=== PATIENT | male | born 1990 | race Caucasian/White ===

== ENCOUNTER 2023-04-07 14:30 | Outpatient (CLI) | payer BC, SELFPAY ==
--- NOTE | 2023-04-07 | ECG_ITS ---
Measurements Intervals [place] Rate: 79 P: 27 WV: 136 QRS: 56 QRSD: 101 T: 37 QT: 352 QTc: 405 Interpretive Statements SINUS RHYTHM INCOMPLETE RIGHT BUNDLE BRANCH BLOCK BORDERLINE ECG NO PREVIOUS ECG AVAILABLE FOR COMPARISON Electronically Signed On 04-07-2023 15:36:48 CDT by Jayden Rolle D.O.
== END 2023-04-07 14:31 | disposition home or self-care (01) ==
LOC: ANHLAB 14:41 → ANHCARD 14:43
PROVIDERS: PCP Family Medicine Sports Medicine; Visit Provider Family Medicine Sports Medicine
DX: R07.9 Chest pain, unspecified (principal); R07.81 Pleurodynia; I45.10 Unspecified right bundle-branch block
CPT/HCPCS: 93005

== ENCOUNTER 2023-06-15 13:13 | Outpatient (CLI) | payer BC, SELFPAY ==
--- NOTE | ~2023-06-15 | CT_ITS ---
EXAMINATION: CT abdomen pelvis w con DATE: 06/15/2023 13:38 INDICATION: DIFFUSE ABD PAIN TECHNIQUE: Computed tomography (CT) of the abdomen and pelvis was performed with 100 mL Omnipaque-350 intravenous contrast. Automated exposure control and iterative reconstruction technique were employe d. The dose-length product was 518.32 mGy-cm. COMPARISON: None. FINDINGS: Lower thorax: Unremarkable Liver: Normal. Biliary/Gallbladder: Gallbladder is normal. No bile duct dilation. Pancreas: No mass or duct dilation. Spleen: Normal. Adrenals:No mass. Kidneys: No suspicious mass or obstructing calcification. Mild bilateral pelviectasis and ureterectas is GI tract: No small or large bowel dilation. Normal appendix. Mesentery/Peritoneum: No ascites, mass, or free air. Retroperitoneum: No mass. Pelvis: Partially distended urinary bladder with wall thickening. Soft Tissues: Soft tissues and body wall unremarkable. Bones: No acute osseous finding. IMPRESSION: Urinary bladder wall thickening, likely due to incomplete distention, noting that cystitis could appe ar similarly. Very mild bilateral hydronephrosis, may be normal for this patient or related to pathology such as as cending infection, mild UPJ obstruction, etc. Reviewed, dictated and finalized at location K. IMPRESSION: Urinary bladder wall thickening, likely due to incomplete distention, noting th at cystitis could appear similarly. Very mild bilateral hydronephrosis, may be normal for this patient or related t o pathology such as ascending infection, mild UPJ obstruction, etc.
== END 2023-06-15 13:14 | disposition home or self-care (01) ==
PROVIDERS: PCP Family Medicine Sports Medicine
DX: R10.84 Generalized abdominal pain (principal); N13.39 Other hydronephrosis
CPT/HCPCS: 74177; Q9967

== ENCOUNTER 2023-06-24 07:26 | Outpatient (CLI) | payer BC, SELFPAY ==
--- NOTE | 2023-06-24 07:40 | EST_ITS ---
Patient Info Name: Rogers Cui Age: 32 years : 1990 Gender: Male Ht: 66 in Wt: 174 lbs BSA: 1.94 m2 HR: 72 bpm BP: 120 / 68 mmHg Heart Rhythm: Sinus Rhythm Exam Date: 06/24/2023 9:21 AM Exam Location: [facility] Stress Patient Status: Outpatient Admit Date: 06/24/2023 Staff Ordering Physician: Jayden Rolle DO Attending Provider: Jayden Rolle DO Exercise Technologist: Nanette Lee CT Exercise Physician: Jayden Rolle DO Exam Type: CA stress test treadmill Study Info Indications R06.09 - Other forms of dyspnea A treadmill exercise stress test was performed. Summary 1. 1. Negative Gigi exercise stress test for ischemic ST changes by ECG criteria. 2. 2. Good functional capacity, achieving 10 METs of workload. 3. 3. Appropriate HR response to exercise. 4. 4. Appropriate HR recovery at 1 minute post exercise. 5. 5. No imaging with stress testing. 6. 6. Patient informed of the above results. Protocol: Gigi Stress ECG Details Stage: REST Duration (min): 1 min : 3 sec Speed (mph): 0.0 Grade (%): 0 HR (bpm): 70 SBP (mmHg): 120 DBP (mmHg): 68 METS: --- Stage: REST Duration (min): 13 min : 10 sec Speed (mph): 0.0 Grade (%): 0 HR (bpm): 102 SBP (mmHg): 120 DBP (mmHg): 68 METS: --- Stage: STAGE 1 Duration (min): 1 min : 0 sec Speed (mph): 1.7 Grade (%): 10 HR (bpm): 111 SBP (mmHg): 120 DBP (mmHg): 68 METS: --- Stage: STAGE 1 Duration (min): 2 min : 0 sec Speed (mph): 1.7 Grade (%): 10 HR (bpm): 114 SBP (mmHg): 120 DBP (mmHg): 68 METS: --- Stage: STAGE 1 Duration (min): 3 min : 0 sec Speed (mph): 1.7 Grade (%): 10 HR (bpm): 128 SBP (mmHg): 141 DBP (mmHg): 70 METS: --- Stage: STAGE 2 Duration (min): 1 min : 0 sec Speed (mph): 2.5 Grade (%): 12 HR (bpm): 132 SBP (mmHg): 141 DBP (mmHg): 70 METS: --- Stage: STAGE 2 Duration (min): 2 min : 0 sec Speed (mph): 2.5 Grade (%): 12 HR (bpm): 136 SBP (mmHg): 138 DBP (mmHg): 68 METS: --- Stage: STAGE 2 Duration (min): 3 min : 0 sec Speed (mph): 2.5 Grade (%): 12 HR (bpm): 144 SBP (mmHg): 138 DBP (mmHg): 68 METS: --- Stage: STAGE 3 Duration (min): 1 min : 0 sec Speed (mph): 3.4 Grade (%): 14 HR (bpm): 152 SBP (mmHg): 167 DBP (mmHg): 71 METS: --- Stage: STAGE 3 Duration (min): 2 min : 0 sec Speed (mph): 3.4 Grade (%): 14 HR (bpm): 155 SBP (mmHg): 167 DBP (mmHg): 71 METS: --- Stage: STAGE 3 Duration (min): 2 min : 0 sec Speed (mph): 3.4 Grade (%): 14 HR (bpm): 155 SBP (mmHg): 167 DBP (mmHg): 71 METS: --- Stage: RECOVERY Duration (min): 0 min : 59 sec Speed (mph): 0.0 Grade (%): 0 HR (bpm): 118 SBP (mmHg): 143 DBP (mmHg): 65 METS: --- Stage: RECOVERY Duration (min): 1 min : 59 sec Speed (mph): 0.0 Grade (%): 0 HR (bpm): 101 SBP (mmHg): 143 DBP (mmHg): 65 M
--- NOTE | 2023-06-24 07:40 | ECHO_ITS ---
Patient Info Name: Rogers Cui Age: 32 years : 1990 Gender: Male Ht: 66 in Wt: 184 lbs BSA: 2.00 m2 HR: 81 bpm BP: 114 / 86 mmHg Technical Quality: Good Exam Date: 06/24/2023 7:51 AM Exam Location: [facility] Patient Status: Outpatient Admit Date: 06/24/2023 Staff Ordering Physician: Jayden Rolle DO E Tailer: Gosia Kapoor RDCS Attending Provider: Jayden Rolle DO Referring Physician: Aquilino SNEED; Exam Type: CA echo doppler color flow Study Info Indications R06.00 - Dyspnea, unspecified Complete two-dimensional, color flow and Doppler transthoracic echocardiogram is performed. Summary 1. Complete two-dimensional, color flow and Doppler transthoracic echocardiogram is performed. 2. Left ventricular chamber dimension is normal. 3. Left ventricular systolic function is normal, estimated at 60-65%. 4. The left ventricular diastolic function is normal. 5. E/e' 5 is not elevated. 6. Global longitudinal strain is normal at -17.2%. 7. There is trace tricuspid valve regurgitation. 8. No pulmonary hypertension, estimated pulmonary arterial systolic pressure is 26 mmHg. Left Ventricle E/e' 5 is not elevated. Global longitudinal strain is normal at -17.2%. Left ventricular chamber dimension is normal. Left ventricular systolic function is normal, estimated at 60-65%. The left ventricular diastolic function is normal. Right Ventricle Right ventricular systolic function is normal and with normal TAPSE 2.3 cm. Right ventricular chamber dimension is normal. Left Atria Left atrial chamber dimension is normal. Right Atria Right atrial chamber dimension is normal. Aortic Valve The aortic valve is trileaflet. There is no aortic valve stenosis. There is no aortic valve regurgitation. Pulmonic Valve There is no pulmonic regurgitation. Mitral Valve There is no mitral valve stenosis. There is no mitral valve regurgitation. Tricuspid Valve There is trace tricuspid valve regurgitation. No pulmonary hypertension, estimated pulmonary arterial systolic pressure is 26 mmHg. Pericardium/Pleural There is no pericardial effusion. Inferior Vena Cava Normal inferior vena cava with >50% collapse upon inspiration consistent with normal right atrial pressure, 5 mmHg. Aorta The aortic root size at the sinus of Valsalva is normal. Left Ventricular Outflow Tract Name Value Normal LVOT 2D LVOT Diameter 2.2 cm LVOT Doppler LVOT Peak Gradient 3 mmHg LVOT Mean Gradient 2 mmHg LVOT VTI 17 cm LVOT VTI/AV VTI Ratio 0.9 LVOT Stroke Volume 67 ml LVOT CO 4.7 l/min LVOT CI 2.4 l/min/m2 Pulmonic Valve Name Value Normal RVOT Doppler RVOT Peak Gradient 2 mmHg PV Doppler
== END 2023-06-24 07:27 | disposition home or self-care (01) ==
PROVIDERS: PCP Family Medicine Sports Medicine; Visit Provider Internal Medicine Cardiovascular Disease
DX: R07.9 Chest pain, unspecified (principal)
CPT/HCPCS: 93017; 93306